=== PATIENT | male | born 1995 | race Caucasian/White ===

== ENCOUNTER 2018-11-13 21:13 | Emergency (ER) | payer SELFPAY ==
[~2018-11-13] VITALS: Ht 190.5 cm; Wt 108.9 kg
--- NOTE | 2018-11-13 21:18 | ED.ADGEN ---
Adult General Chief Complaint Chief Complaint ".. I ve got severe Lt. flank pain.. ".. It started about 6.. 6:30.. " HPI HPI Patient is a 23 year old male who presents with above hx and complaints of Lt. lower flank abd. pain . No hx prior kidney stones with him or family members. No hx of trauma. No hx bad food, trauma or ill contacts. Pt. rates pain as 10/10 , stabbing down Lt. flank to groin. Denies hx. of immunosuppression or travel. . Review of Systems Review of Systems Constitutional: Denies fever or chills [] Eyes: Denies change in visual acuity, redness, or eye pain [] HENT: Denies nasal congestion or sore throat [] Respiratory: Denies cough or shortness of breath [] Cardiovascular: No additional information not addressed in HPI [] GI: Complains of Lt flank abdominal pain, nausea, vomiting,. Denies bloody stools or diarrhea [] : Denies dysuria or hematuria [] Musculoskeletal: Denies back pain or joint pain [] Integument: Denies rash or skin lesions [] Neurologic: Denies headache, focal weakness or sensory changes [] Endocrine: Denies polyuria or polydipsia [] All other systems were reviewed and found to be within normal limits, except as documented in this note. Family History Family History Non-contributory Current Medications Current Medications Current Medications Medications (Trade) Dose Ordered Sig/Breanna Start Time Stop Time Status Last Admin Dose Admin Famotidine (Pepcid Vial) 20 mg 1X ONCE 11/13/18 21:30 11/13/18 21:31 DC 11/13/18 21:35 20 MG Ketorolac Tromethamine (Toradol 30mg Vial) 30 mg 1X ONCE 11/13/18 21:30 11/13/18 21:31 DC 11/13/18 21:35 30 MG Lactated Ringer's 1,000 ml @ 1,000 mls/hr Q1H 11/13/18 21:30 11/13/18 22:29 DC 11/13/18 21:34 1,000 MLS/HR Ondansetron HCl (Zofran) 8 mg 1X ONCE 11/13/18 21:30 11/13/18 21:31 DC 11/13/18 21:34 8 MG Allergies Allergies Allergies Coded Allergies Type Severity Reaction Last Updated Verified iodine Allergy Severe rash 11/13/18 Yes Physical Exam Physical Exam Constitutional: in acute distress, non-toxic appearance. [] HENT: Normocephalic, atraumatic, bilateral external ears normal, oropharynx moist, no oral exudates, nose normal. [] Eyes: PERRLA, EOMI, conjunctiva normal, no discharge. [] Neck: Normal range of motion, no tenderness, supple, no stridor. [] Cardiovascular:Tachycardia Heart rate regular rhythm, no murmur [] Lungs & Thorax: Bilateral breath sounds clear to auscultation [] Abdomen: Bowel sounds , soft, no tenderness, no masses, no pulsatile masses. [] Skin: Warm, diaphoretic, no erythema, no rash. [] Back: No tenderness, Lt. CVA tenderness. [] Extremities: No tenderness, no cyanosis, no clubbing, ROM intact, no edema. [] Neurologic: Alert and oriented X 3, normal motor function, normal sensory function, no focal deficits noted. [] Psychologic: Affect normal, judgement normal, mood normal. [] Current Patient Data Vital Signs Vital Signs Date Time Temp Pulse Resp B/P (MAP) Pulse Ox O2 Delivery O2 Flow Rate FiO2 11/13/18 23:24 66 135/69 (91) 98 Room Air 11/13/18 21:20 98.0 30 Lab Results Laboratory Tests Test 11/13/18 21:20 11/13/18 22:00 White Blood Count 6.5 x10^3/uL (4.0-11.0) Red Blood Count 5.35 x10^6/uL (4.30-5.70) Hemoglobin 15.4 g/dL (13.0-17.5) Hematocrit 46.2 % (39.0-53.0) Mean Corpuscular Volume 86 fL (79-100) Mean Corpuscular Hemoglobin 29 pg (25-35) Mean Corpuscular Hemoglobin Concent 33 g/dL (31-37) Red Cell Distribution Width 14.7 % (11.5-14.5) H Platelet Count 192 x10^3/uL (140-400) Neutrophils (%) (Auto) 62 % (31-73) Lymphocytes (%) (Auto) 25 % (24-48) Monocytes (%) (Auto) 10 % (0-9) H Eosinophils (%) (Auto) 3 % (0-3) Basophils (%) (Auto) 1 % (0-3) Neutrophils # (Auto) 4.0 x10^3uL (1.8-7.7) Lymphocytes # (Auto) 1.6 x10^3/uL (1.0-4.8) Monocytes # (Auto) 0.6 x10^3/uL (0.0-1.1) Eosinophils # (Auto) 0.2 x10^3/uL (0.0-0.7) Basophils # (Auto) 0.0 x10^3/uL (0.0-0.2) Prothrombin Time 11.2 SEC (9.4-11.4) Prothrombin Time INR 1.1 (0.9-1.1) PTT 23 SEC (23-33) Sodium Level 142 mmol/L (136-145) Potassium Level 3.8 mmol/L (3.5-5.1) Chloride Level 106 mmol/L (98-107) Carbon Dioxide Level 24 mmol/L (21-32) Anion Gap 12 (6-14) Blood Urea Nitrogen 8 mg/dL (8-26) Creatinine 1.3 mg/dL (0.7-1.3) Estimated GFR (Cockcroft-Gault) 68.4 Glucose Level 108 mg/dL (70-99) H Calcium Level 9.6 mg/dL (8.5-10.1) Total Bilirubin 1.8 mg/dL (0.2-1.0) H Direct Bilirubin 0.3 mg/dL (0.0-0.2) H Aspartate Amino Transferase (AST) 26 U/L (15-37) Alanine Aminotransferase (ALT) 78 U/L (16-63) H Alkaline Phosphatase 66 U/L (46-116) Total Protein 7.6 g/dL (6.4-8.2) Albumin 4.4 g/dL (3.4-5.0) Amylase Level 26 U/L (25-115) Lipase 84 U/L (73-393) Urine Collection Type Unknown Urine Color Brown Urine Clarity Turbid Urine pH 6.0 Urine Specific [place] >=1.030 Urine Protein 100 mg/dl (NEG-TRACE) Urine Glucose (UA) Neg mg/dL (NEG) Urine Ketones (Stick) 15 mg/dL (NEG) Urine Blood Large (NEG) Urine Nitrite Neg (NEG) Urine Bilirubin Small (NEG) Urine Urobilinogen Dipstick 0.2 mg/dL (0.2 mg/dL) Urine Leukocyte Esterase Neg (NEG) Urine RBC Tntc /HPF (0-2) Urine WBC 1-4 /HPF (0-4) Urine Squamous Epithelial Cells Few /LPF Urine Bacteria Few /HPF (0-FEW) Urine Mucus Slight /LPF Urine Yeast Present /HPF Urine Opiates Screen Neg (NEG) Urine Methadone Screen Neg (NEG) Urine Barbiturates Neg (NEG) Urine Phencyclidine Screen Neg (NEG) Urine Amphetamine/Methamphetamine Neg (NEG) Urine Benzodiazepines Screen Neg (NEG) Urine Cocaine Screen Neg (NEG) Urine Cannabinoids Screen Pos (NEG) Urine Ethyl Alcohol Neg (NEG) EKG EKG [] Radiology/Procedures Radiology/Procedures I interpretation acute abdomen film shows no acute findings on chest portion. No free air in the diaphragm. Does have stool in the colon. Nonspecific bowel gas pattern. There are bladder stones. My interpretation CT of abdomen and pelvis shows no hydronephrosis. There are multiple calcifications bilateral pelvis and low density liver lesion. See formal report when available.[] Course & Med Decision Making Course & Med Decision Making Pertinent Labs and Imaging studies reviewed. (See chart for details) Pt. pain resolved at discharge. A shunt is screen urine for stones. Safe stones in the past. Patient push clear fluids. Patient states Zofran as needed for nausea and vomiting. Patient may take Vicoprofen up 4 times a day for marked pain. Patient follow-up primary care. Patient return if any concerns. [] Final Impression Final Impression 1. Lt. Flank Abdomen pain[] 2. Suspect renal colic 3. Hematuria 4. Marijuana and Tobacco Use Dragon Disclaimer Dragon Disclaimer This electronic medical record was generated, in whole or in part, using a voice recognition dictation system. Discharge Summary Visit Information Final Diagnosis Problems Medical Problems: (1) Renal colic on left side Status: Acute Brief Hospital Course Allergies Allergies Coded Allergies Type Severity Reaction Last Updated Verified iodine Allergy Severe rash 11/13/18 Yes Vital Signs Vital Signs Date Time Temp Pulse Resp B/P (MAP) Pulse Ox O2 Delivery O2 Flow Rate FiO2 11/13/18 23:24 66 135/69 (91) 98 Room Air 11/13/18 21:20 98.0 30 Lab Results Laboratory Tests Test 11/13/18 21:20 11/13/18 22:00 White Blood Count 6.5 x10^3/uL (4.0-11.0) Red Blood Count 5.35 x10^6/uL (4.30-5.70) Hemoglobin 15.4 g/dL (13.0-17.5) Hematocrit 46.2 % (39.0-53.0) Mean Corpuscular Volume 86 fL (79-100) Mean Corpuscular Hemoglobin 29 pg (25-35) Mean Corpuscular Hemoglobin Concent 33 g/dL (31-37) Red Cell Distribution Width 14.7 % (11.5-14.5) Platelet Count 192 x10^3/uL (140-400) Neutrophils (%) (Auto) 62 % (31-73) Lymphocytes (%) (Auto) 25 % (24-48) Monocytes (%) (Auto) 10 % (0-9) Eosinophils (%) (Auto) 3 % (0-3) Basophils (%) (Auto) 1 % (0-3) Neutrophils # (Auto) 4.0 x10^3uL (1.8-7.7) Lymphocytes # (Auto) 1.6 x10^3/uL (1.0-4.8) Monocytes # (Auto) 0.6 x10^3/uL (0.0-1.1) Eosinophils # (Auto) 0.2 x10^3/uL (0.0-0.7) Basophils # (Auto) 0.0 x10^3/uL (0.0-0.2) Prothrombin Time 11.2 SEC (9.4-11.4) Prothromb Time International Ratio 1.1 (0.9-1.1) Activated Partial Thromboplast Time 23 SEC (23-33) Sodium Level 142 mmol/L (136-145) Potassium Level 3.8 mmol/L (3.5-5.1) Chloride Level 106 mmol/L (98-107) Carbon Dioxide Level 24 mmol/L (21-32) Anion Gap 12 (6-14) Blood Urea Nitrogen 8 mg/dL (8-26) Creatinine 1.3 mg/dL (0.7-1.3) Estimated GFR (Cockcroft-Gault) 68.4 Glucose Level 108 mg/dL (70-99) Calcium Level 9.6 mg/dL (8.5-10.1) Total Bilirubin 1.8 mg/dL (0.2-1.0) Direct Bilirubin 0.3 mg/dL (0.0-0.2) Aspartate Amino Transf (AST/SGOT) 26 U/L (15-37) Alanine Aminotransferase (ALT/SGPT) 78 U/L (16-63) Alkaline Phosphatase 66 U/L (46-116) Total Protein 7.6 g/dL (6.4-8.2) Albumin 4.4 g/dL (3.4-5.0) Amylase Level 26 U/L (25-115) Lipase 84 U/L (73-393) Urine Collection Type Unknown Urine Color Brown Urine Clarity Turbid Urine pH 6.0 Urine Specific [place] >=1.030 Urine Protein 100 mg/dl (NEG-TRACE) Urine Glucose (UA) Neg mg/dL (NEG) Urine Ketones (Stick) 15 mg/dL (NEG) Urine Blood Large (NEG) Urine Nitrite Neg (NEG) Urine Bilirubin Small (NEG) Urine Urobilinogen Dipstick 0.2 mg/dL (0.2 mg/dL) Urine Leukocyte Esterase Neg (NEG) Urine RBC Tntc /HPF (0-2) Urine WBC 1-4 /HPF (0-4) Urine Squamous Epithelial Cells Few /LPF Urine Bacteria Few /HPF (0-FEW) Urine Mucus Slight /LPF Urine Yeast Present /HPF Urine Opiates Screen Neg (NEG) Urine Methadone Screen Neg (NEG) Urine Barbiturates Neg (NEG) Urine Phencyclidine Screen Neg (NEG) Urine Amphetamine/Methamphetamine Neg (NEG) Urine Benzodiazepines Screen Neg (NEG) Urine Cocaine Screen Neg (NEG) Urine Cannabinoids Screen Pos (NEG) Urine Ethyl Alcohol Neg (NEG) Brief Hospital Course Mr. Ibrahim is a 23 old male who presented with renal colic Discharge Information Condition at Discharge: Improved, Stable Disposition/Orders: D/C to Home Dischare Medications Current Medications Lactated Ringer's 1,000 ml @ 1,000 mls/hr Q1H IV Last administered on at 21:34; Admin Dose 1,000 MLS/HR; Start 11/13/18 at 21:30; Stop 11/13/18 at 22:29; Status DC Ondansetron HCl (Zofran) 8 mg 1X ONCE IV Last administered on 11/13/18at 21:34 ; Admin Dose 8 MG; Start 11/13/18 at 21:30; Stop 11/13/18 at 21:31; Status DC Famotidine (Pepcid Vial) 20 mg 1X ONCE IVP Last administered on 11/13/18at 21: 35; Admin Dose 20 MG; Start 11/13/18 at 21:30; Stop 11/13/18 at 21:31; Status DC Ketorolac Tromethamine (Toradol 30mg Vial) 30 mg 1X ONCE IV Last administered on 11/13/18at 21:35; Admin Dose 30 MG; Start 11/13/18 at 21:30; Stop 11/13/18 at 21:31; Status DC Active Scripts Active Zofran (Ondansetron Hcl) 8 Mg Tablet 8 Mg PO QIDPRN PRN Hydrocodone-Ibuprofen 7.5-200 (Hydrocodone/Ibuprofen) 1 Each Tablet 1 Tab PO PRN Q6HRS PRN Discharge Summary Visit Information Final Diagnosis Problems Medical Problems: (1) Renal colic on left side Status: Acute Brief Hospital Course Allergies Allergies Coded Allergies Type Severity Reaction Last Updated Verified iodine Allergy Severe rash 11/13/18 Yes Vital Signs Vital Signs Date Time Temp Pulse Resp B/P (MAP) Pulse Ox O2 Delivery O2 Flow Rate FiO2 11/13/18 23:24 66 135/69 (91) 98 Room Air 11/13/18 21:20 98.0 30 Lab Results Laboratory Tests Test 11/13/18 21:20 11/13/18 22:00 White Blood Count 6.5 x10^3/uL (4.0-11.0) Red Blood Count 5.35 x10^6/uL (4.30-5.70) Hemoglobin 15.4 g/dL (13.0-17.5) Hematocrit 46.2 % (39.0-53.0) Mean Corpuscular Volume 86 fL (79-100) Mean Corpuscular Hemoglobin 29 pg (25-35) Mean Corpuscular Hemoglobin Concent 33 g/dL (31-37) Red Cell Distribution Width 14.7 % (11.5-14.5) Platelet Count 192 x10^3/uL (140-400) Neutrophils (%) (Auto) 62 % (31-73) Lymphocytes (%) (Auto) 25 % (24-48) Monocytes (%) (Auto) 10 % (0-9) Eosinophils (%) (Auto) 3 % (0-3) Basophils (%) (Auto) 1 % (0-3) Neutrophils # (Auto) 4.0 x10^3uL (1.8-7.7) Lymphocytes # (Auto) 1.6 x10^3/uL (1.0-4.8) Monocytes # (Auto) 0.6 x10^3/uL (0.0-1.1) Eosinophils # (Auto) 0.2 x10^3/uL (0.0-0.7) Basophils # (Auto) 0.0 x10^3/uL (0.0-0.2) Prothrombin Time 11.2 SEC (9.4-11.4) Prothromb Time International Ratio 1.1 (0.9-1.1) Activated Partial Thromboplast Time 23 SEC (23-33) Sodium Level 142 mmol/L (136-145) Potassium Level 3.8 mmol/L (3.5-5.1) Chloride Level 106 mmol/L (98-107) Carbon Dioxide Level 24 mmol/L (21-32) Anion Gap 12 (6-14) Blood Urea Nitrogen 8 mg/dL (8-26) Creatinine 1.3 mg/dL (0.7-1.3) Estimated GFR (Cockcroft-Gault) 68.4 Glucose Level 108 mg/dL (70-99) Calcium Level 9.6 mg/dL (8.5-10.1) Total Bilirubin 1.8 mg/dL (0.2-1.0) Direct Bilirubin 0.3 mg/dL (0.0-0.2) Aspartate Amino Transf (AST/SGOT) 26 U/L (15-37) Alanine Aminotransferase (ALT/SGPT) 78 U/L (16-63) Alkaline Phosphatase 66 U/L (46-116) Total Protein 7.6 g/dL (6.4-8.2) Albumin 4.4 g/dL (3.4-5.0) Amylase Level 26 U/L (25-115) Lipase 84 U/L (73-393) Urine Collection Type Unknown Urine Color Brown Urine Clarity Turbid Urine pH 6.0 Urine Specific [place] >=1.030 Urine Protein 100 mg/dl (NEG-TRACE) Urine Glucose (UA) Neg mg/dL (NEG) Urine Ketones (Stick) 15 mg/dL (NEG) Urine Blood Large (NEG) Urine Nitrite Neg (NEG) Urine Bilirubin Small (NEG) Urine Urobilinogen Dipstick 0.2 mg/dL (0.2 mg/dL) Urine Leukocyte Esterase Neg (NEG) Urine RBC Tntc /HPF (0-2) Urine WBC 1-4 /HPF (0-4) Urine Squamous Epithelial Cells Few /LPF Urine Bacteria Few /HPF (0-FEW) Urine Mucus Slight /LPF Urine Yeast Present /HPF Urine Opiates Screen Neg (NEG) Urine Methadone Screen Neg (NEG) Urine Barbiturates Neg (NEG) Urine Phencyclidine Screen Neg (NEG) Urine Amphetamine/Methamphetamine Neg (NEG) Urine Benzodiazepines Screen Neg (NEG) Urine Cocaine Screen Neg (NEG) Urine Cannabinoids Screen Pos (NEG) Urine Ethyl Alcohol Neg (NEG) Brief Hospital Course Mr. Ibrahim is a 23 old male who presented with renal colic Discharge Information Condition at Discharge: Improved, Stable Disposition/Orders: D/C to Home Dischare Medications Current Medications Lactated Ringer's 1,000 ml @ 1,000 mls/hr Q1H IV Last administered on at 21:34; Admin Dose 1,000 MLS/HR; Start 11/13/18 at 21:30; Stop 11/13/18 at 22:29; Status DC Ondansetron HCl (Zofran) 8 mg 1X ONCE IV Last administered on 11/13/18at 21:34 ; Admin Dose 8 MG; Start 11/13/18 at 21:30; Stop 11/13/18 at 21:31; Status DC Famotidine (Pepcid Vial) 20 mg 1X ONCE IVP Last administered on 11/13/18at 21: 35; Admin Dose 20 MG; Start 11/13/18 at 21:30; Stop 11/13/18 at 21:31; Status DC Ketorolac Tromethamine (Toradol 30mg Vial) 30 mg 1X ONCE IV Last administered on 11/13/18at 21:35; Admin Dose 30 MG; Start 11/13/18 at 21:30; Stop 4/20/19 at 21:31; Status DC Active Scripts Active Zofran (Ondansetron Hcl) 8 Mg Tablet 8 Mg PO QIDPRN PRN Hydrocodone-Ibuprofen 7.5-200 (Hydrocodone/Ibuprofen) 1 Each Tablet 1 Tab PO PRN Q6HRS PRN Dragon Disclaimer This chart was dictated in whole or in part using Voice Recognition software in a busy, high-work load, and often noisy Emergency Department environment. It may contain unintended and wholly unrecognized errors or omissions. Dragon Disclaimer This chart was dictated in whole or in part using Voice Recognition software in a busy, high-work load, and often noisy Emergency Department environment. It may contain unintended and wholly unrecognized errors or omissions. MEHNAZ LEONE MD Nov 13, 2018 21:18
[2018-11-13] MEDS ORDERED: FAMOTIDINE 20 MG/2 ML VIAL IVP ONE (21:30)
[2018-11-13] MEDS ORDERED: KETOROLAC 30 MG/ML VIAL. IV ONE (21:30)
[2018-11-13] MEDS ORDERED: ONDANSETRON PF 4 MG/2 ML VIAL. IV ONE (21:30)
[2018-11-13] MEDS ORDERED: IV RINGERS SOLUTION,LACTATED 1,000 ML IV SCH (21:30)
[2018-11-13 21:34] LABS: BASO % 1 % (0-3); EOS # 0.2 x10^3/uL (0.0-0.7); EOS % 3 % (0-3); HEMATOCRIT 46.2 % (39.0-53.0); HEMOGLOBIN 15.4 g/dL (13.0-17.5); LYMPH # 1.6 x10^3/uL (1.0-4.8); LYMPH % 25 % (24-48); MEAN CORPUSCULAR HEMOGLOBIN 29 pg (25-35); MEAN CORPUSCULAR HGB CONC 33 g/dL (31-37); MEAN CORPUSCULAR VOLUME 86 fL (79-100); MONO # 0.6 x10^3/uL (0.0-1.1); MONO % 10 % (0-9); NEUT % 62 % (31-73); PLATELET COUNT 192 x10^3/uL (140-400); RED BLOOD COUNT 5.35 x10^6/uL (4.30-5.70); RED CELL DISTRIBUTION WIDTH 14.7 % (11.5-14.5); WHITE BLOOD COUNT 6.5 x10^3/uL (4.0-11.0)
[2018-11-13 21:45] LABS: ALBUMIN 4.4 g/dL (3.4-5.0); CALCIUM 9.6 mg/dL (8.5-10.1); CREATININE 1.3 mg/dL (0.7-1.3); DIRECT BILIRUBIN 0.3 mg/dL (0.0-0.2); GFR 68.4; POTASSIUM 3.8 mmol/L (3.5-5.1); TOTAL BILIRUBIN 1.8 mg/dL (0.2-1.0); TOTAL PROTEIN 7.6 g/dL (6.4-8.2)
[2018-11-13 22:24] LABS: BARBITURATES NEG (NEG); BENZODIAZEPINES NEG (NEG); CANNABINOIDS POS (NEG); COCAINE NEG (NEG); METHADONE NEG (NEG); OPIATES NEG (NEG); PHENCYCLIDINE NEG (NEG)
[2018-11-13 22:25] LABS: BILIRUBIN,URINE SMALL (NEG); CLARITY,URINE TURBID; COLOR,URINE BROWN; GLUCOSE,URINE NEG (NEG)
[2018-11-13 22:26] LABS: BACTERIA,URINE FEW /HPF (0-FEW); NITRITE,URINE NEG (NEG); RBC,URINE TNTC /HPF (0-2); SQUAMOUS EPITHELIAL CELL,UR FEW /LPF; UROBILINOGEN,URINE 0.2 mg/dL (0.2 mg/dL); YEAST,URINE PRESENT /HPF
[2018-11-13 22:29] LABS: AMPHETAMINE/METHAMPHETAMINE NEG (NEG)
[2018-11-13 23:24] VITALS: BP 135/69
--- NOTE | 2018-11-14 | RAD ---
INDICATION: Renal colic, left flank, back and abdominal pain. COMPARISON: None. TECHNIQUE: Axial CT images obtained through the chest, abdomen and pelvis without contrast. Limited assessment of solid organ structures and vasculature secondary to lack of intravenous contrast.. One or more of the following individualized dose reduction techniques were utilized for this examination: 1. Automated exposure control; 2. Adjustment of the mA and/or kV according to patient size; 3. Use of iterative reconstruction technique. FINDINGS: Chest: No focal airspace consolidation. No evidence of pneumothorax. Thoracic aorta is not grossly aneurysmal. Abdomen and pelvis: Abdominal aorta is not aneurysmal. Small fat-containing umbilical hernia. Regional low density within the liver adjacent to falciform ligament. No intrahepatic bile duct dilation. Gallbladder is partially contracted with mild indistinctness of adjacent fat versus artifact. Within the left lobe liver there is a suspected low-density lesion measuring approximately 13 mm. Questionable mild indistinctness of fat at adjacent to a portion of the pancreas versus motion artifact. Spleen is not enlarged. No left-sided hydronephrosis. Urinary bladder is largely decompressed. No right-sided hydronephrosis. Calcifications in bilateral hemipelvis. The appendix does not appear dilated. IMPRESSION: 1. No focal airspace consolidation to suggest pneumonia. 2. Questionable indistinctness of fat adjacent to the gallbladder. This is in a region of motion therefore could be from motion artifact unless there is clinical concern for gallbladder inflammation. There is also a similar appearance at the pancreas which could be secondary to motion artifact however would correlate with symptoms and lab markers to ensure that there is not a pathologic cause such as early pancreatitis. These are questionable findings. 3. The urinary bladder is decompressed with mild indistinctness of adjacent fat. Would correlate with symptoms in the region to ensure there is not a pathologic process such as cystitis. 4. No hydronephrosis. There are multiple calcifications in the bilateral hemipelvis however suspect that these are phleboliths given lack of hydronephrosis. 5. Low-density lesion within the liver. Most commonly benign in nature in a patient of this age. Electronically signed by: Damien Stiles MD (11/13/2018 11:57 PM) [facility]
[2018-11-14] MEDS ORDERED: HYDR-1179 PO (00:09)
[2018-11-14] MEDS ORDERED: ONDA8TAB9 PO (00:09)
--- NOTE | 2018-11-14 08:47 | RAD ---
Acute Abdominal Series: Technique: PA view of the chest and supine and upright views of the abdomen were obtained. History: Left flank pain and back pain and abdominal pain. Comparison: November 13, 2018. Findings: The lungs and pleural margins are clear. The bowel gas pattern appears normal. There is no free air. Impression: Nonobstructive bowel gas pattern. Electronically signed by: Leoncio Guzman III, MD (11/14/2018 8:44 AM) [facility]
== END 2018-11-14 00:40 | disposition home or self-care (01) ==
LOC: ER 21:13
DX: N23 Unspecified renal colic (principal); R11.2 Nausea with vomiting, unspecified; R31.9 Hematuria, unspecified; F12.90 Cannabis use, unspecified, uncomplicated; Z72.0 Tobacco use; Z88.8 Allergy status to other drugs, medicaments and biological substances
CPT/HCPCS: 36415; 71250; 74022; 74176; 80048; 80076; 80307; 81001; 82150; 83690; 85025; 85610; 85730; 96361; 96374; 96375; 99285; J1885; J2405; J3490; J7120

== ENCOUNTER 2019-02-14 13:05 | Emergency (ER) | payer BC ==
[~2019-02-14] VITALS: Ht 190.5 cm; Wt 108.9 kg
[~2019-02-14 13:05] MED LIST: HYDR-1179 PO; ONDA8TAB9 PO
[2019-02-14] MEDS ORDERED: IV NORMAL SALINE 1,000ML 1,000 ML IV SCH (13:35)
[2019-02-14] MEDS ORDERED: KETOROLAC 30 MG/ML VIAL. IV ONE (13:45)
[2019-02-14] MEDS ORDERED: PROCHLORPERAZINE 10 MG/2 ML VIAL. IV ONE (13:45)
[2019-02-14 14:04] LABS: ALBUMIN 4.3 g/dL (3.4-5.0); ALBUMIN/GLOBULIN RATIO 1.4 (1.0-1.7); BASO % 1 % (0-3); CALCIUM 9.7 mg/dL (8.5-10.1); CREATININE 1.1 mg/dL (0.7-1.3); EOS # 0.1 x10^3/uL (0.0-0.7); EOS % 2 % (0-3); HEMATOCRIT 46.4 % (39.0-53.0); HEMOGLOBIN 15.5 g/dL (13.0-17.5); LYMPH # 1.1 x10^3/uL (1.0-4.8); LYMPH % 21 % (24-48); MEAN CORPUSCULAR HEMOGLOBIN 29 pg (25-35); MEAN CORPUSCULAR HGB CONC 33 g/dL (31-37); MEAN CORPUSCULAR VOLUME 87 fL (79-100); MONO # 0.5 x10^3/uL (0.0-1.1); MONO % 10 % (0-9); NEUT # 3.3 x10^3uL (1.8-7.7); NEUT % 66 % (31-73); PLATELET COUNT 205 x10^3/uL (140-400); POTASSIUM 3.5 mmol/L (3.5-5.1); RED BLOOD COUNT 5.37 x10^6/uL (4.30-5.70); RED CELL DISTRIBUTION WIDTH 14.3 % (11.5-14.5); TOTAL BILIRUBIN 1.3 mg/dL (0.2-1.0); TOTAL PROTEIN 7.4 g/dL (6.4-8.2)
--- NOTE | 2019-02-14 14:04 | PHYS DOC ---
Past History Past Medical History: Kidney Stones Past Surgical History: Other Alcohol Use: Heavy Drug Use: Marijuana Adult General Chief Complaint Chief Complaint: ABDOMINAL PAIN HPI HPI Patient is a 23-year-old male presents complaining of left chest abdominal and flank pain. This started this morning. It has been waxing and waning. Similar to his previous kidney stones. Also notes he has some dysuria. No blood in the urine. Nothing makes the symptoms better or worse. Patient tried smoking some marijuana after this started to help with the discomfort which did not help. Reports that the pain is severe in intensity.[] Review of Systems Review of Systems Constitutional: Denies fever or chills [] Eyes: Denies change in visual acuity, redness, or eye pain [] HENT: Denies nasal congestion or sore throat [] Respiratory: Denies cough or shortness of breath [] Cardiovascular: No additional information not addressed in HPI [] GI: See history of present illness[] : See history of present illness[] Musculoskeletal: Denies back pain or joint pain [] Integument: Denies rash or skin lesions [] Neurologic: Denies headache, focal weakness or sensory changes [] Endocrine: Denies polyuria or polydipsia [] All other systems were reviewed and found to be within normal limits, except as documented in this note. Current Medications Current Medications Current Medications Medications (Trade) Dose Ordered Sig/Breanna Start Time Stop Time Status Last Admin Dose Admin Ketorolac Tromethamine (Toradol 30mg Vial) 30 mg 1X ONCE 02/14/19 13:45 02/14/19 13:46 DC 02/14/19 13:45 30 MG Prochlorperazine Edisylate (Compazine) 5 mg 1X ONCE 02/14/19 13:45 02/14/19 13:46 DC 02/14/19 13:45 5 MG Sodium Chloride 1,000 ml @ 1,000 mls/hr Q1H 02/14/19 13:35 02/14/19 14:34 02/14/19 13:44 1,000 MLS/HR Allergies Allergies Allergies Coded Allergies Type Severity Reaction Last Updated Verified iodine Allergy Severe rash 11/13/18 Yes Physical Exam Physical Exam Constitutional: Well developed, well nourished, moderate discomfort, non-toxic appearance. [] HENT: Normocephalic, atraumatic, bilateral external ears normal, oropharynx moist, no oral exudates, nose normal. [] Eyes: PERRLA, EOMI, conjunctiva normal, no discharge. [] Neck: Normal range of motion, no tenderness, supple, no stridor. [] Cardiovascular:Heart rate is tachycardic with a regular rhythm, no murmur [] Lungs & Thorax: Bilateral breath sounds clear to auscultation [] Abdomen: Bowel sounds normal, soft, diffuse left-sided tenderness, no rebound, no guarding, no rigidity, no masses, no pulsatile masses. [] Skin: Warm, dry, no erythema, no rash. [] Back: No tenderness, left CVA tenderness. [] Extremities: No tenderness, no cyanosis, no clubbing, ROM intact, no edema. [] Neurologic: Alert and oriented X 3, normal motor function, normal sensory function, no focal deficits noted. [] Psychologic: Affect normal, judgement normal, mood normal. [] Current Patient Data Vital Signs Vital Signs Date Time Temp Pulse Resp B/P (MAP) Pulse Ox O2 Delivery O2 Flow Rate FiO2 02/14/19 13:15 99.4 92 20 97 Room Air EKG EKG EKG shows sinus tachycardia at 119 bpm, no ST elevation, normal axis, normal QTC. Interpreted by me at 1356. No old EKG available for comparison.[] Radiology/Procedures Radiology/Procedures PROCEDURE: CT ABDOMEN PELVIS WO CONTRAST Examination: CT ABDOMEN PELVIS WO CONTRAST History: Left sided upper abdominal pain Comparison/Correlation: 11/13/2018 CT chest abdomen and pelvis without contrast Findings: Axial images of the abdomen and pelvis were obtained without contrast. Sagittal and coronal reformatted images were provided. Visualized lung bases are clear. Liver, spleen, pancreas, and adrenal glands are normal. Gallbladder fossa is unremarkable. There is no hydronephrosis or nephrolithiasis. No radiopaque collecting system calculi identified renal contours are unremarkable. Urinary bladder is unremarkable. No inflammatory change about the cecum. Moderate quantity of stool in the colon. No extraluminal gas. Small umbilical hernia contains omental fat. No ascites or pelvic free fluid. Transitional L5 vertebra noted. Impression: No radiopaque collecting system calculus or evidence of obstruction. No inflammatory processes. PROCEDURE: PORTABLE CHEST 1V EXAM: CHEST 1 VIEW History: Left chest discomfort COMPARISON: 11/13/2018 TECHNIQUE: Single portable radiograph of the chest FINDINGS: The cardiac silhouette is unremarkable. The lungs are clear bilaterally. The costophrenic sulci are clear and well demarcated. IMPRESSION: No radiographic evidence of an acute cardiopulmonary process. [] Course & Med Decision Making Course & Med Decision Making Pertinent Labs and Imaging studies reviewed. (See chart for details) ED course: Patient arrived, was placed in bed, and tolerated exam well. He was given IV pain medicine, fluids and antiemetics, he was transported to and from radiology with any complications. The medicines improved his discomfort. He was able to ambulate. Lab and imaging findings were discussed with the patient. He was discharged in improved condition with all questions answered. Medical decision making: This does not appear to be an acute coronary syndrome, no evidence of pneumonia, pneumothorax, pulmonary embolism, obstruction or perforation within the abdominal viscus. No evidence of urinary tract infection, pyelonephritis, nor obstructing stone. No stone is noted on the CT scan. No pancreatitis.[] Dragon Disclaimer Dragon Disclaimer This electronic medical record was generated, in whole or in part, using a voice recognition dictation system. Departure Departure: Impression: Primary Impression: Abdominal pain Disposition: HOME, SELF-CARE Condition: IMPROVED Referrals: ARA BARILLAS MD (PCP) Follow-up in 2 days Patient Instructions: Abdominal Pain (Nonspecific) Additional Instructions: Follow-up with your regular doctor in 2 days. Drink plenty of fluids. Return to the ER if worsening pain or any other concerns. Scripts Metoclopramide Hcl (REGLAN) 10 Mg Tablet 10 MG PO QID for nausea and vomiting, #30 TAB Prov: RADHA MANNING DO 02/14/19 Meloxicam (MELOXICAM) 7.5 Mg Tablet 7.5 MG PO DAILY for PAIN, #20 TAB Prov: RADHA MANNING DO 02/14/19 Hyoscyamine Sulfate (LEVSIN) 0.125 Mg Tablet 0.125 MG PO QID for abdominal pain/cramping, #30 TAB Prov: RADHA MANNING DO 02/14/19 Problem Qualifiers Primary Impression: Abdominal pain Abdominal location: left upper quadrant Qualified Codes: R10.12 - Left upper quadrant pain RADHA MANNING DO Feb 14, 2019 14:04
--- NOTE | 2019-02-14 14:13 | EKG ---
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
--- NOTE | 2019-02-14 14:32 | RAD ---
EXAM: CHEST 1 VIEW History: Left chest discomfort COMPARISON: 11/13/2018 TECHNIQUE: Single portable radiograph of the chest FINDINGS: The cardiac silhouette is unremarkable. The lungs are clear bilaterally. The costophrenic sulci are clear and well demarcated. IMPRESSION: No radiographic evidence of an acute cardiopulmonary process. Electronically signed by: Sukumar Peoples MD (02/14/2019 2:29 PM) [id number]
--- NOTE | 2019-02-14 14:35 | RAD ---
Examination: CT ABDOMEN PELVIS WO CONTRAST History: Left sided upper abdominal pain Comparison/Correlation: 11/13/2018 CT chest abdomen and pelvis without contrast Findings: Axial images of the abdomen and pelvis were obtained without contrast. Sagittal and coronal reformatted images were provided. Visualized lung bases are clear. Liver, spleen, pancreas, and adrenal glands are normal. Gallbladder fossa is unremarkable. There is no hydronephrosis or nephrolithiasis. No radiopaque collecting system calculi identified renal contours are unremarkable. Urinary bladder is unremarkable. No inflammatory change about the cecum. Moderate quantity of stool in the colon. No extraluminal gas. Small umbilical hernia contains omental fat. No ascites or pelvic free fluid. Transitional L5 vertebra noted. Impression: No radiopaque collecting system calculus or evidence of obstruction. No inflammatory processes. PQRS Compliance Statement: One or more of the following individualized dose reduction techniques were utilized for this examination: 1. Automated exposure control 2. Adjustment of the mA and/or kV according to patient size 3. Use of iterative reconstruction technique Electronically signed by: Miguel Wilkins MD (02/14/2019 2:33 PM) [id number]
[2019-02-14 15:29] LABS: BACTERIA,URINE FEW /HPF (0-FEW); BILIRUBIN,URINE SMALL (NEG); CLARITY,URINE CLOUDY; COLOR,URINE AMBER; GLUCOSE,URINE NEG (NEG); NITRITE,URINE NEG (NEG); RBC,URINE OCC /HPF (0-2); UROBILINOGEN,URINE 1 mg/dL (0.2 mg/dL); WBC,URINE 0 /HPF (0-4)
[2019-02-14 15:30] LABS: SQUAMOUS EPITHELIAL CELL,UR OCC /LPF
[2019-02-14 15:31] LABS: BARBITURATES NEG (NEG); BENZODIAZEPINES NEG (NEG); CANNABINOIDS POS (NEG); COCAINE NEG (NEG); METHADONE NEG (NEG); OPIATES NEG (NEG); PHENCYCLIDINE NEG (NEG)
[2019-02-14 15:32] LABS: AMPHETAMINE/METHAMPHETAMINE NEG (NEG)
[2019-02-14 15:43] VITALS: BP 102/54
[2019-02-14] MEDS ORDERED: HYOS0.1264 PO (15:55)
[2019-02-14] MEDS ORDERED: METO10TA81 PO (15:55)
[2019-02-14] MEDS ORDERED: MELO7.5T29 PO (15:55)
== END 2019-02-14 16:08 | disposition home or self-care (01) ==
LOC: ER 13:05
DX: R10.12 Left upper quadrant pain (principal); R10.84 Generalized abdominal pain; F10.20 Alcohol dependence, uncomplicated; Z87.442 Personal history of urinary calculi; Z88.8 Allergy status to other drugs, medicaments and biological substances; Y90.9 Presence of alcohol in blood, level not specified
CPT/HCPCS: 36415; 71045; 74176; 80053; 80307; 81001; 83690; 84484; 85025; 85379; 93005; 96374; 96375; 99285; J0780; J1885; J7030

== ENCOUNTER 2020-09-03 11:17 | Emergency (ER) | payer BC, OTHER ==
[~2020-09-03] VITALS: Ht 190.5 cm; Wt 122.0 kg
[~2020-09-03 11:17] MED LIST changes: +HYOS0.1264 PO; +MELO7.5T29 PO; +METO10TA81 PO
--- NOTE | 2020-09-03 12:22 | PHYS DOC ---
Past History Past Medical History: No Pertinent History Past Surgical History: Other Additional Past Surgical Histo: HERNIA Alcohol Use: None Drug Use: Marijuana Adult General Chief Complaint Chief Complaint: SHORTNESS OF BREATH HPI HPI Patient is a 24-year-old male presents to the emergency department complaining of a cough for the past 2 weeks, headaches for the past 3 days, off and on fever and chills for the past 2 weeks. Patient states he woke up at sometime between 830 and 9:00 this morning having a severe coughing spell. Patient states his cough is nonproductive of sputum. Patient states during his coughing spell he noticed some pain on the left side of his chest that went through to his back and radiated down his left arm. Patient states after his coughing spell his chest pain, radiation of chest pain resolved and he is currently pain-free. Patient states he does not have a headache at this time. Patient does say his throat is sore and scratchy for the past week. Patient denies any runny nose, nasal congestion, abdominal pain, nausea, vomiting, or diarrhea. Patient denies constipation. Patient denies seeing rashes on his skin. Patient denies muscle aches or body aches, fatigue, loss of taste or loss of smell. Patient states he is not sure if he has had any COVID-19 virus exposure however reports his parents work at a grocery store so he may have been exposed by them. Patient states that both his parents have not had the COVID-19 virus. Patient wishes to be tested for the COVID-19 virus today. Review of Systems Review of Systems 14 body systems of review of systems have been reviewed. See HPI for pertinent positives and negative responses, otherwise all other systems are negative, nonpertinent or noncontributory. Allergies Allergies Allergies Coded Allergies Type Severity Reaction Last Updated Verified iodine Allergy Severe rash 09/03/20 Yes Physical Exam Physical Exam Constitutional: Well developed, well nourished, no acute distress, non-toxic appearance. HENT: Normocephalic, atraumatic, bilateral external ears normal, oropharynx moist, no oral exudates, nose normal. Erythematous oropharynx, no uvular edema, mild tonsillar swelling without cobblestoning, no postnasal drip appreciated, no deep tissue infection appreciated, no peritonsillar abscess or drainage appreciated. Eyes: PERRLA, EOMI, conjunctiva normal, no discharge. Neck: Normal range of motion, no tenderness, supple, no stridor. No nuchal rigidity, no meningismus signs. Cardiovascular:Heart rate regular rhythm, no murmur, heart sounds S1-S2 auscultation. Lungs & Thorax: Bilateral breath sounds clear to auscultation all lung barragan. Pain reproducible to the left pectoralis with palpation. Abdomen: Bowel sounds normal, soft, no tenderness, no masses, no pulsatile masses. Skin: Warm, dry, no erythema, no rash. Back: No tenderness, no CVA tenderness. Extremities: No tenderness, no cyanosis, no clubbing, ROM intact, no edema. Neurologic: Alert and oriented X 3, normal motor function, normal sensory function, no focal deficits noted. Psychologic: Affect normal, judgement normal, mood normal. Current Patient Data Vital Signs Vital Signs Date Time Temp Pulse Resp B/P (MAP) Pulse Ox O2 Delivery O2 Flow Rate FiO2 09/03/20 11:23 97.7 99 18 142/93 (109) 98 EKG EKG EKG performed at 1127 by house respiratory therapy staff, shows a normal sinus rhythm without ectopy with a heart rate of 76 bpm, AL interval 0.138, QTc interval 0.398, no acute STEMI, no ACS, no acute ischemia appreciated, EKG i nterpreted by ED attending physician Dr. Gann. Radiology/Procedures Radiology/Procedures [] Heart Score HEART Score for Chest Pain: HEART Score for Chest Pain Response (Comments) Value History Slighlty/Non-Suspicious 0 ECG Normal 0 Age < 45 0 Risk Factors No Risk Factors 0 Total 0 Risk Factors: Risk Factors: DM, Current or recent (<one month) smoker, HTN, HLP, family history of CAD, obesity. Risk Scores: Risk Factors: DM, Current or recent (<one month) smoker, HTN, HLP, family his tory of CAD, obesity. Course & Med Decision Making Course & Med Decision Making Pertinent Labs and Imaging studies reviewed. (See chart for details) 24-year-old male, vital signs reviewed, reports emergency department with main complaint of wanting a COVID-19 virus test. Patient did have a short spell of chest pain this morning during a coughing spell that was reproducible during physical exam. Patient's oropharynx suggestive of strep pharyngitis bacterial versus viral. Patient did agree to EKG, however patient refused need of recommended chest x-ray and lab work to further assess chest pain complaint and fever chills at home. Patient states that he will just take a flu, strep, and COVID-19 test and then wants to go home. Patient states currently he feels fine and has no physical complaints. Discussed with patient need for serum blood lab work and chest x-ray to complete physical examination, patient continues to deny need for this and refuses these tests. ED planning, p.o. Tylenol and Motrin for sore throat, strep test, flu test, COVID-19 test. Upon reexamination of the patient patient reports that he had another episode of chest pain with cough. Patient is now amenable to have cardiac labs drawn and chest x-ray performed. Pending results at this time. Patient remains in nontoxic appearance. Patient's left-sided chest wall pain reproducible to palpation. Chest x-ray and serum labs are unremarkable, discussed findings with patient, patient gave verbal understanding of discharge home instructions, follow-up with primary care physician, return to emergency department precautions or concerns, patient was discharged home without incident. Patient is a PUI, I were N95 mask, goggles, face shield, PPE gown and gloves during all contact with this patient Dragon Disclaimer Dragon Disclaimer This electronic medical record was generated, in whole or in part, using a voice recognition dictation system. Departure Departure: Impression: Primary Impression: Chest wall pain Additional Impressions: Person under investigation for COVID-19 Counseled about COVID-19 virus infection Educated about COVID-19 virus infection Disposition: 01 DC HOME SELF CARE/HOMELESS Condition: GOOD Referrals: ARA BARILLAS MD (PCP) Patient Instructions: Chest Wall Pain Additional Instructions: Please take medications as prescribed, follow-up with your primary care doctor for ongoing pain in your chest wall, return to the emergency department for worsening symptoms or other concerns. You have been tested today for the Covid 19 virus, I have attached detailed instructions to this document please review. EMERGENCY DEPARTMENT GENERAL DISCHARGE INSTRUCTIONS Thank you for coming to [facility] (ED) today and trusting us with you care. We trust that you had a positivie experience in our Emergency Department. If you wish to speak to the department management, you may call the director at [phone]. YOUR FOLLOW UP INSTRUCTIONS ARE FOLLOWS: 1. Do you have a private Doctor? If you do not have a private doctor, please ask for a resource list of physicians or clinics that may be able to assist you with follow up care. 2. The Emergency Physician has interpreted your x-rays. The X-Ray specialist will also review them. If there is a change in the findings, you will be notified in 48 hours when at all possible. 3. A lab test or culture has been done, your results will be reviewed and you will be notified if you need a change in treatment. ADDITIONAL INSTRUCTIONS AND INFORMATION: 1. Your care today has been supervised by a physician who is specially trained in emergency care. Many problems require more than one evaluation for a complete diagnosis and treatment. We recommend that you schedule your follow up appointment as recommended to ensure complete treatment of you illness or injury. If you are unable to obtain follow up care and continue to have a problem, or if your condition worsens, we recommend that you return to the ED. 2. We are not able to safely determine your condition over the phone nor are we able to give sound medical advice over the phone. For these safety reasons, if you call for medical advice we will ask you to come to the ED for further evaluation. 3. If you have any questions regarding these discharge instructions please call the ED at [phone]. SAFETY INFORMATION: In the interest of safety, wellness, and injury prevention; we encourage you to wear your sealbelt, if you smoke; quite smoking, and we encourage family to use a protective helmet for bicycling and other sporting events that present an increased risk for head injury. IF YOUR SYMPTOMS WORSEN OR NEW SYMPTOMS DEVELOP, OR YOU HAVE CONCERNS ABOUT YOUR CONDITION; OR IF YOUR CONDITION WORSENS WHILE YOU ARE WAITING FOR YOUR FOLLOW UP APPOI NTMENT; EITHER CONTACT YOUR PRIMARY CARE DOCTOR, THE PHYSICIAN WHOSE NAME AND NUMBER YOU WERE GIVEN, OR RETURN TO THE ED IMMEDIATELY. You have been tested for or diagnosed with COVID-19. It is an infection caused by a new type of coronavirus. COVID-19 will cause cold-like or mild flu symptoms in most. It can cause more severe symptoms like problems breathing in some. There is no treatment for COVID-19. The body will clear the infection over time. Self-care will help to ease discomfort. Steps to Take: Self-Care Rest as needed. Healthy habits may help you feel better. Steps include: Choose healthy foods including fruits and vegetables. Drink water throughout the day. Get plenty of sleep each night. If you smoke, try to quit. It may ease breathing. Avoid alcohol. Keep Others Healthy The virus can spread to others. Droplets are released every time you sneeze or cough. The droplets can get into the mouth, nose, or eyes of people near you and lead to infection. To lower the chances of spreading COVID-19 to others: Stay at home until your doctor has said it is safe to leave. If you tested positive this will mean staying isolated until both of the following are true: At least 7 days have passed since the start of illness. You are free of fever for at least 72 hours without the use of medicine. During this time: - Avoid public areas, events, or transportation. Do not return to work or school until your doctor has said it is safe to do so. - Call ahead if you need to go to a medical center. Let them know you may have COVID-19. It will help them guide you where to go. They may also ask you to wear a facemask when you come to the office. - If you call for emergency medical services, let them know you may have COVID- 19. While at home: - Try to avoid close contact with others. Stay about 6 feet away. - If possible, spend most of your time in a separate room from others. - Use a face mask if you will be in close contact with others such as sharing a room or vehicle. - Have someone wipe down common surfaces in the home. Use household tuck pointer helper every day on areas like doorknobs, counters, or sinks. - Cough or sneeze into a tissue. Throw the tissue away right after use. If a tissue is not available, cough or sneeze into your elbow. - Wash your hands often. Wash them after sneezing or coughing. Use soap and water and wash for at least 20 seconds. Alcohol based hand film cleaner can be used if soap and water is not available. - Do not prepare food for others. Avoid sharing personal items like forks, spo ons, or toothbrushes. - Avoid close contact with pets while you are sick. There is no evidence of the virus passing to pets. This is a safety step until more is known about this virus. Isolation can be frustrating. Social interaction can help. Keep in touch with friends and family through phone and tech options. You can still interact with others in your home, just keep a safe distance of about 6 feet. Follow-up: Your doctors office will check in with you to see if there are any changes in your health. You may be asked to keep track of symptoms to share with them. They will also let you know when you are clear to be in public again. Problems to Look Out For: Contact your doctor if your recovery is not going as you expect. Get emergency care if you have problems such as: - Trouble breathing - Nonstop chest pain or pressure - Changes in awareness, confusion, or problems waking - Lips or face have bluish color - Worsening of symptoms If you think you have an emergency, call for emergency medical services right away. As taken from [facility] Scripts Ibuprofen (IBUPROFEN) 600 Mg Tablet 600 MG PO TID PRN PRN for PAIN, #20 TAB 0 Refills Prov: KLEVER SAUCEDO APRN 09/03/20 Problem Qualifiers KLEVER SAUCEDO APRN Sep 03, 2020 12:22
[2020-09-03] MEDS ORDERED: IBUPROFEN 600 MG TABLET. PO ONE (12:30)
[2020-09-03] MEDS ORDERED: ACETAMINOPHEN 325 MG TABLET PO ONE (12:30)
[2020-09-03 13:16] VITALS: BP 142/93
[2020-09-03 13:28] LABS: INFLUENZA A PATIENT NEGATIVE (NEGATIVE); INFLUENZA B PATIENT NEGATIVE (NEGATIVE)
--- NOTE | 2020-09-03 14:03 | RAD ---
Single view of the chest. 09/03/2020 1:50 PM Indication: Reason: CHEST PAIN / Spl. Instructions: / History: Comparison: None Findings: There is no focal consolidation. There is no pleural effusion or pneumothorax. The cardiome diastinal silhouette and pulmonary vasculature are within normal limits. No acute osseous abnormaliti es are seen. Impression: No evidence of acute cardiopulmonary process. Electronically signed by: Clarence Arnold MD (09/03/2020 2:01 PM) [id number]
[2020-09-03 14:31] LABS: BASO % 1 % (0-3); EOS # 0.4 x10^3/uL (0.0-0.7); EOS % 6 % (0-3); HEMATOCRIT 42.3 % (39.0-53.0); HEMOGLOBIN 14.1 g/dL (13.0-17.5); LYMPH # 1.6 x10^3/uL (1.0-4.8); LYMPH % 23 % (24-48); MEAN CORPUSCULAR HEMOGLOBIN 29 pg (25-35); MEAN CORPUSCULAR HGB CONC 33 g/dL (31-37); MEAN CORPUSCULAR VOLUME 87 fL (79-100); MONO # 0.7 x10^3/uL (0.0-1.1); MONO % 9 % (0-9); NEUT # 4.3 x10^3uL (1.8-7.7); NEUT % 61 % (31-73); PLATELET COUNT 202 x10^3/uL (140-400); RED BLOOD COUNT 4.88 x10^6/uL (4.30-5.70); RED CELL DISTRIBUTION WIDTH 13.5 % (11.5-14.5); WHITE BLOOD COUNT 7.1 x10^3/uL (4.0-11.0)
[2020-09-03 15:16] LABS: CALCIUM 8.4 mg/dL (8.5-10.1); CREATININE 1.1 mg/dL (0.7-1.3); GFR 82.2; POTASSIUM 4.5 mmol/L (3.5-5.1)
[2020-09-03 15:19] LABS: ALBUMIN 3.6 g/dL (3.4-5.0); MAGNESIUM 2.2 mg/dL (1.8-2.4); TOTAL BILIRUBIN 0.8 mg/dL (0.2-1.0); TOTAL PROTEIN 7.1 g/dL (6.4-8.2)
[2020-09-03] MEDS ORDERED: IBUP600T16 PO (15:49)
--- NOTE | 2020-09-03 18:40 | EKG ---
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
== END 2020-09-03 15:56 | disposition home or self-care (01) ==
LOC: ER 11:17
DX: R07.89 Other chest pain (principal); R51.9 Headache, unspecified; Z20.822 Contact with and (suspected) exposure to COVID-19; Z88.8 Allergy status to other drugs, medicaments and biological substances
CPT/HCPCS: 36415; 71045; 80053; 83735; 84484; 85025; 87070; 87804; 87880; 93005; 99285; C9803; U0003